=== PATIENT | female | born 1970 | race Caucasian/White ===

== ENCOUNTER 2017-02-11 16:27 | Inpatient (IN) | payer OTHER ==
[~2017-02-11] VITALS: Ht 160 cm; Wt 103.7 kg
[~2017-02-11 16:27] MED LIST: ACID REDUCER 1150 MG PO; CHANTIX1 MG PO; DIAZEPAM10 MG PO; DYMISTA NASAL S23 GM BOTH NARES; FIORICET,ESG1 TABLET PO; GABAPENTIN600 MG PO; HYDROXYCHLOROQ200 MG PO; Habitrol,Nicoderm CQ TD; K-DUR20 MEQ PO; LASIX40 MG PO; LEVAQUIN750 MG PO; LEVOTHYROXINE137 MCG PO; Levothroid,Synthroid PO; MICRO-K10 ME2 PO; Martinic PO; Micro-K,K-Tab,K-Dur, PO; PLAQUENIL200 MG PO; REQUIP2 MG PO; ROBAXIN500 MG PO; Requip PO; SYNTHROID112 MCG PO; SYNTHROID137 MCG PO; SYSTANE LIQUID15 ML RIGHT EYE; TOPAMAX100 MG PO; TOPAMAX50 MG PO; TRAMADOL HCL50 MG PO; TYLENOL EXTRA500 MG PO; Topamax PO; ULTRAM50 MG PO; VALIUM10 MG PO; VICODIN,LORT1 TABLET PO; VITAMIN B12 100MCG PO; Valium PO; ZOLOFT100 M1 PO; ZOLOFT100 MG PO; Zoloft PO
[2017-02-11 17:18] LABS: HEMATOCRIT 41.4 % (36.0-46.0); MCHC 33.1 G/DL (30.0-36.0); MCV 96.7 FL (83-99); MEAN PLAT.VOLUME 9.8 uM^3 (9.5-12.4); PLATELET COUNT 228 K/uL (156-360); RBC DIS.WIDTH-CV 13.1 % (11.8-14.6); RED BLOOD COUNT 4.28 M/uL (3.80-5.20)
[2017-02-11 17:27] LABS: CHLORIDE 109 mEq/L (99-109); POTASSIUM 3.6 mEq/L (3.7-5.4); SODIUM 138 mEq/L (136-147)
[2017-02-11 17:29] LABS: GLUCOSE 133 mg/dL (70-99)
[2017-02-11 17:30] LABS: ANION GAP 8 MEQ/L (2-14)
[2017-02-11 17:33] LABS: GFR ESTIMATE (CALCULATED) > 59 mL/min/
[2017-02-11 17:34] LABS: UREA NITROGEN (BUN) 8 mg/dL (9-23)
[2017-02-11 17:40] LABS: TROP-I INTERPRETATION NEGATIVE; TROPONIN-I < 0.01 ng/mL (0.0-0.30)
[2017-02-11 17:43] LABS: D-DIMER ELISA 0.55 mg/L FEU (< 0.57)
[2017-02-11] MEDS ORDERED: TOPAMAX50 MG PO ×2 (19:43)
[2017-02-11] MEDS ORDERED: CEPHALEXIN500 MG PO (19:47)
[2017-02-11] MEDS ORDERED: DULOXETINE HCL60 MG PO (19:47)
[2017-02-11] MEDS ORDERED: ESTRADIOL1 MG PO (19:47)
[2017-02-11] MEDS ORDERED: PRIMIDONE50 MG PO (19:48)
[2017-02-11] MEDS ORDERED: FLOVENT 11120 INHALA IH (19:49)
[2017-02-11] MEDS ORDERED: BIOTIN1000 MCG PO (19:49)
[2017-02-11] MEDS ORDERED: MELOXICAM7.5 MG PO (19:49)
[2017-02-11 21:49] LABS: BASE EXCESS -5.8 mEq/L (-3 to +3); BICARBONATE 18.5 mEq/L (22-26); CARBOXY HGB 1.5 % (0-5); METHEMOGLOBIN 1.3 % (0-1.5); PCO2 32 mm Hg (35-45); PO2 68 mm Hg (80-100); pH 7.37 (7.35-7.45)
[2017-02-11 21:50] LABS: COMMENTS - BLOOD GASES A+C+; DEVICE VENTURI MASK; FI02 50 %; O2 FLOW 12 L/MIN; SITE RR; TOTAL RESP RATE 20 resp/min
[2017-02-11 23:51] VITALS: BP 127/71
[2017-02-12 03:32] VITALS: BP 120/68
[2017-02-12 04:36] LABS: HEMATOCRIT 37.1 % (36.0-46.0); MCH 32.1 PG (29.0-34.0); MCHC 33.2 G/DL (30.0-36.0); MCV 96.9 FL (83-99); MEAN PLAT.VOLUME 9.9 uM^3 (9.5-12.4); PLATELET COUNT 204 K/uL (156-360); RBC DIS.WIDTH-CV 13.2 % (11.8-14.6); RBC DIS.WIDTH-SD 46.6 % (39-53); RED BLOOD COUNT 3.83 M/uL (3.80-5.20); WHITE BLOOD COUNT 14.4 K/uL (4.1-10.2)
[2017-02-12 04:55] LABS: CHLORIDE 114 mEq/L (99-109); POTASSIUM 3.5 mEq/L (3.7-5.4); SODIUM 140 mEq/L (136-147)
[2017-02-12 04:57] LABS: GLUCOSE 175 mg/dL (70-99)
[2017-02-12 04:58] LABS: ANION GAP 8 MEQ/L (2-14)
[2017-02-12 04:59] LABS: TOTAL BILIRUBIN 0.3 mg/dL (0.0-1.0)
[2017-02-12 05:00] LABS: ALKALINE PHOSPHATASE 80 IU/L (3-129)
[2017-02-12 05:01] LABS: GFR ESTIMATE (CALCULATED) > 59 mL/min/
[2017-02-12 05:02] LABS: DIRECT BILIRUBIN 0.1 mg/dL (0.0-0.3); UREA NITROGEN (BUN) 7 mg/dL (9-23)
[2017-02-12 08:27] VITALS: BP 140/79
[2017-02-12 09:16] LABS: CARBOXY HGB 2.2 % (0-5); HEMOGLOBIN 12.8 (11.9-15.5); METHEMOGLOBIN 1.5 % (0-1.5); PCO2 38 mm Hg (35-45); PO2 58 mm Hg (80-100); pH 7.33 (7.35-7.45)
[2017-02-12 09:17] LABS: BASE EXCESS -5.4 mEq/L (-3 to +3); COMMENTS - BLOOD GASES A+C+; DEVICE VM; FI02 50 %; O2 FLOW 12 L/MIN; SITE RR; TOTAL RESP RATE 28 resp/min
[2017-02-12 12:30] VITALS: BP 111/70
[2017-02-12 15:41] VITALS: BP 95/53
[2017-02-12 19:00] VITALS: BP 112/71
[2017-02-12 23:00] VITALS: BP 110/52
[2017-02-13 03:30] VITALS: BP 112/66
[2017-02-13 04:43] LABS: HEMATOCRIT 36.7 % (36.0-46.0); MCHC 32.7 G/DL (30.0-36.0); MCV 97.9 FL (83-99); MEAN PLAT.VOLUME 10.5 uM^3 (9.5-12.4); PLATELET COUNT 213 K/uL (156-360); RBC DIS.WIDTH-CV 13.2 % (11.8-14.6); RBC DIS.WIDTH-SD 47.8 % (39-53); RED BLOOD COUNT 3.75 M/uL (3.80-5.20); WHITE BLOOD COUNT 17.2 K/uL (4.1-10.2)
[2017-02-13 04:56] LABS: CHLORIDE 109 mEq/L (99-109); POTASSIUM 3.9 mEq/L (3.7-5.4); SODIUM 140 mEq/L (136-147)
[2017-02-13 04:57] LABS: GLUCOSE 142 mg/dL (70-99)
[2017-02-13 04:59] LABS: ANION GAP 7 MEQ/L (2-14)
[2017-02-13 05:01] LABS: GFR ESTIMATE (CALCULATED) > 59 mL/min/
[2017-02-13 05:02] LABS: UREA NITROGEN (BUN) 11 mg/dL (9-23)
[2017-02-13 08:50] VITALS: BP 110/63
[2017-02-13 09:48] LABS: INTERNAL CONTROL VALID? YES
[2017-02-13 12:53] VITALS: BP 98/51
[2017-02-13 15:20] VITALS: BP 97/61
[2017-02-13 19:35] VITALS: BP 108/73
[2017-02-13 23:03] LABS: METH RESISTANT S AUREUS PCR NEGATIVE (NEGATIVE)
[2017-02-13 23:05] LABS: PROBE CHECK PASS; SPECIMEN PROCESSING CONTROL PASS
[2017-02-13 23:43] VITALS: BP 125/83
[2017-02-14 04:45] VITALS: BP 126/82
[2017-02-14 06:02] LABS: HEMATOCRIT 36.9 % (36.0-46.0); MCH 31.6 PG (29.0-34.0); MCV 98.7 FL (83-99); MEAN PLAT.VOLUME 10.2 uM^3 (9.5-12.4); PLATELET COUNT 242 K/uL (156-360); RBC DIS.WIDTH-CV 13.1 % (11.8-14.6); RBC DIS.WIDTH-SD 47.7 % (39-53); RED BLOOD COUNT 3.74 M/uL (3.80-5.20); WHITE BLOOD COUNT 15.3 K/uL (4.1-10.2)
[2017-02-14 06:27] LABS: ANION GAP 5 MEQ/L (2-14); CHLORIDE 109 MEQ/L (99-109); GFR ESTIMATE (CALCULATED) > 59 mL/min/; GLUCOSE 110 mg/dL (70-99); POTASSIUM 4.1 MEQ/L (3.7-5.4); SAMPLE HEMOLYSIS CHECK 0; SAMPLE ICTERIC CHECK 0; SAMPLE LIPEMIA CHECK 0; SODIUM 138 MEQ/L (136-147); UREA NITROGEN (BUN) 13 mg/dL (9-23)
[2017-02-14 07:44] VITALS: BP 104/51
[2017-02-14 12:09] VITALS: BP 118/63
[2017-02-14 19:20] VITALS: BP 110/71
[2017-02-15 00:16] VITALS: BP 109/63
[2017-02-15 04:29] VITALS: BP 123/67
[2017-02-15 07:09] LABS: HEMATOCRIT 36.6 % (36.0-46.0); MCH 31.8 PG (29.0-34.0); MCHC 32.5 G/DL (30.0-36.0); MCV 97.9 FL (83-99); MEAN PLAT.VOLUME 10.8 uM^3 (9.5-12.4); PLATELET COUNT 249 K/uL (156-360); RBC DIS.WIDTH-CV 13.1 % (11.8-14.6); RBC DIS.WIDTH-SD 47.2 % (39-53); RED BLOOD COUNT 3.74 M/uL (3.80-5.20)
[2017-02-15 07:11] LABS: WHITE BLOOD COUNT 10.7 K/uL (4.1-10.2)
[2017-02-15 08:07] VITALS: BP 126/56
[2017-02-15 11:51] VITALS: BP 102/60
[2017-02-15 15:53] VITALS: BP 111/59
[2017-02-15 19:15] VITALS: BP 108/57
[2017-02-16 00:01] VITALS: BP 109/64
[2017-02-16 04:02] VITALS: BP 108/62
[2017-02-16 07:01] LABS: HEMATOCRIT 35.1 % (36.0-46.0); MCH 31.7 PG (29.0-34.0); MCHC 32.2 G/DL (30.0-36.0); MCV 98.3 FL (83-99); MEAN PLAT.VOLUME 10.7 uM^3 (9.5-12.4); PLATELET COUNT 251 K/uL (156-360); RBC DIS.WIDTH-CV 13.2 % (11.8-14.6); RBC DIS.WIDTH-SD 47.8 % (39-53); RED BLOOD COUNT 3.57 M/uL (3.80-5.20); WHITE BLOOD COUNT 9.5 K/uL (4.1-10.2)
[2017-02-16 09:00] VITALS: BP 118/56
[2017-02-16 16:00] VITALS: BP 112/60
[2017-02-16 16:28] LABS: C DIFF TOXIN NEGATIVE (NEGATIVE)
[2017-02-16 16:29] LABS: PROBE CHECK PASS; SPECIMEN PROCESSING CONTROL PASS
[2017-02-16 19:20] VITALS: BP 111/66
[2017-02-17 00:18] VITALS: BP 111/65
[2017-02-17 03:28] VITALS: BP 124/72
[2017-02-17 05:57] LABS: EOSINOPHIL (%) 0.4 % (0-5); HEMATOCRIT 36.9 % (36.0-46.0); IMMATURE GRANULOCYTE (%) 2.7 % (0.0-0.7); IMMATURE GRANULOCYTE COUNT 0.2 K/uL; INSTRUMENT ABS NEUTROPHIL CT 5.6 K/uL; LYMPHOCYTE COUNT 1.8 K/uL (1.0-2.8); MCH 31.9 PG (29.0-34.0); MCHC 32.2 G/DL (30.0-36.0); MCV 98.9 FL (83-99); MEAN PLAT.VOLUME 10.6 uM^3 (9.5-12.4); MONOCYTE COUNT 0.4 K/uL (0-0.8); NEUTROPHIL (%) 69.5 % (45-76); NEUTROPHIL COUNT 5.6 K/uL (1.8-6.4); PLATELET COUNT 278 K/uL (156-360); RBC DIS.WIDTH-CV 13.2 % (11.8-14.6); RBC DIS.WIDTH-SD 48.5 % (39-53); RED BLOOD COUNT 3.73 M/uL (3.80-5.20)
[2017-02-17 06:25] LABS: ALKALINE PHOSPHATASE 92 IU/L (3-129); ANION GAP 7 MEQ/L (2-14); CHLORIDE 107 MEQ/L (99-109); GFR ESTIMATE (CALCULATED) > 59 mL/min/; GLUCOSE 93 mg/dL (70-99); POTASSIUM 4.3 MEQ/L (3.7-5.4); SAMPLE HEMOLYSIS CHECK 0; SAMPLE ICTERIC CHECK 0; SAMPLE LIPEMIA CHECK 0; SODIUM 141 MEQ/L (136-147); TOTAL BILIRUBIN 0.3 MG/DL (0.0-1.0); UREA NITROGEN (BUN) 12 mg/dL (9-23)
[2017-02-17 09:00] VITALS: BP 119/58
[2017-02-17 16:00] VITALS: BP 126/64
[2017-02-17 20:00] VITALS: BP 116/61
[2017-02-18] VITALS: BP 123/70
[2017-02-18 03:00] VITALS: BP 115/68
[2017-02-18 06:11] LABS: ALKALINE PHOSPHATASE 94 IU/L (3-129); ANION GAP 6 MEQ/L (2-14); CHLORIDE 108 MEQ/L (99-109); GFR ESTIMATE (CALCULATED) > 59 mL/min/; GLUCOSE 76 mg/dL (70-99); POTASSIUM 4.1 MEQ/L (3.7-5.4); SAMPLE HEMOLYSIS CHECK 0; SAMPLE ICTERIC CHECK 0; SAMPLE LIPEMIA CHECK 0; SODIUM 139 MEQ/L (136-147); TOTAL BILIRUBIN 0.3 MG/DL (0.0-1.0); UREA NITROGEN (BUN) 10 mg/dL (9-23)
[2017-02-18 06:17] LABS: HEMATOCRIT 36.7 % (36.0-46.0); MCH 31.9 PG (29.0-34.0); MCHC 32.7 G/DL (30.0-36.0); MCV 97.6 FL (83-99); MEAN PLAT.VOLUME 10.6 uM^3 (9.5-12.4); PLATELET COUNT 272 K/uL (156-360); RBC DIS.WIDTH-CV 13.2 % (11.8-14.6); RBC DIS.WIDTH-SD 47.6 % (39-53); RED BLOOD COUNT 3.76 M/uL (3.80-5.20); WHITE BLOOD COUNT 10.8 K/uL (4.1-10.2)
[2017-02-18 06:45] LABS: ABS NEUTROPHIL COUNT 8.1; ANISOCYTOSIS 1+; BAND NEUTROPHILS 3.5 % (0-8.0); EOSINOPHIL ABS CT 0.1; EOSINOPHILS 0.9 % (0-5.0); INSTRUMENT ABS NEUTROPHIL CT 6.1 K/uL; LYMPHOCYTES 18.6 % (15.0-45.0); MACROCYTES 1+; METAMYELOCYTES 0.9 %; NUCLEATED RBC'S 0.9; PLAT.SUFFICIENCY ADEQUATE; SEG.NEUTROPHILS 71.7 % (46.0-76.0)
[2017-02-18 08:00] VITALS: BP 131/68
[2017-02-18 12:09] VITALS: BP 119/72
[2017-02-18 13:58] LABS: GLOMERULAR BASEMENT MEMB ABY+ <1.0 AI (<1.0)
[2017-02-18 15:50] VITALS: BP 133/69
[2017-02-18 20:01] VITALS: BP 121/73
[2017-02-19 00:08] VITALS: BP 117/63
[2017-02-19 04:00] VITALS: BP 109/65
[2017-02-19 08:00] VITALS: BP 116/66
[2017-02-19 12:00] VITALS: BP 111/60
[2017-02-19 15:25] VITALS: BP 112/65
[2017-02-19 20:51] LABS: Neutrophil Cytoplasmic Aby Negative (Negative)
[2017-02-20 00:18] VITALS: BP 128/75
[2017-02-20] MEDS ORDERED: MYCOSTATIN 100,60 ML PO (08:38)
[2017-02-20] MEDS ORDERED: SPIRIVA RESPIMAT4 GM IH (08:38)
[2017-02-20] MEDS ORDERED: MYCOPHENOLATE250 MG PO (08:38)
[2017-02-20] MEDS ORDERED: PREDNISONE10 MG PO (08:38)
[2017-02-20] MEDS ORDERED: CALCIUM 500-VI1 EACH PO (08:56)
== END 2017-02-20 10:26 | disposition home or self-care (01) | DRG 871 ==
LOC: EME 16:27 → 4EAST 21:39 → EDOF 21:39 → 4EAST 23:23 → 2EAST 02-18 15:48
PROVIDERS: Emergency Medicine; Hospitalist; Internal Medicine; Internal Medicine Infectious Disease; Internal Medicine Pulmonary Disease
DX: A41.9 Sepsis, unspecified organism (principal); J96.01 Acute respiratory failure with hypoxia; J84.9 Interstitial pulmonary disease, unspecified; J15.9 Unspecified bacterial pneumonia; I27.2 Other secondary pulmonary hypertension; B37.0 Candidal stomatitis; J44.0 Chronic obstructive pulmonary disease with (acute) lower respiratory infection; K51.90 Ulcerative colitis, unspecified, without complications; J44.1 Chronic obstructive pulmonary disease with (acute) exacerbation; M06.9 Rheumatoid arthritis, unspecified; Z68.41 Body mass index [BMI] 40.0-44.9, adult; E03.9 Hypothyroidism, unspecified; Z72.0 Tobacco use; Z87.442 Personal history of urinary calculi; G89.29 Other chronic pain; R10.9 Unspecified abdominal pain; J45.909 Unspecified asthma, uncomplicated; R65.20 Severe sepsis without septic shock; E87.6 Hypokalemia; F32.9 Major depressive disorder, single episode, unspecified
CPT/HCPCS: 36600; 71010; 71020; 71275; 76937; 80048; 80053; 80076; 82607; 82746; 82803; 83520 90; 83605; 83880; 84145 90; 84484; 85025; 85027; 85379; 86021 90; 86038; 86430; 87040; 87070; 87106; 87205; 87449; 87493; 87641; 93306; 94010; 94640; 94640 76; 94644; 94760; 94799; 99202; 99281; 99284; C1894; J0696; J1644; J1940; J1956; J2405; J2543; J2930; J7030; J7050; J7512; J7517

== ENCOUNTER 2017-09-11 09:32 | Observation (INO) | payer OTHER ==
[~2017-09-11] VITALS: Ht 157.5 cm; Wt 105.1 kg
[~2017-09-11 09:32] MED LIST changes: +CALCIUM 500-VI1 EACH PO; +CEPHALEXIN500 MG PO; +DULOXETINE HCL60 MG PO; +ESTRADIOL1 MG PO; +FLOVENT 11120 INHALA IH; +MEGA BIOTIN10000 MCG PO; +MELOXICAM7.5 MG PO; +MYCOPHENOLATE250 MG PO; +MYCOSTATIN 100,60 ML PO; +PREDNISONE10 MG PO; +PRIMIDONE50 MG PO; +SPIRIVA RESPIMAT4 GM IH
[2017-09-11 10:08] LABS: HEMATOCRIT 40.5 % (36.0-46.0); HEMOGLOBIN 13.7 G/DL (11.9-15.5); MCH 31.6 PG (29.0-34.0); MCHC 33.8 G/DL (30.0-36.0); MCV 93.5 FL (83-99); PLATELET COUNT 270 K/uL (156-360); RBC DIS.WIDTH-CV 12.3 % (11.8-14.6); RBC DIS.WIDTH-SD 42.5 % (39-53); RED BLOOD COUNT 4.33 M/uL (3.80-5.20); WHITE BLOOD COUNT 9.4 K/uL (4.1-10.2)
[2017-09-11 10:19] LABS: ALBUMIN 3.7 g/dL (3.2-4.8); CHLORIDE 104 mEq/L (99-109); POTASSIUM 4.2 mEq/L (3.7-5.4); SODIUM 138 mEq/L (136-147)
[2017-09-11 10:21] LABS: GLUCOSE 88 mg/dL (70-99); TOTAL PROTEIN 8.4 g/dL (6.4-8.3)
[2017-09-11 10:23] LABS: TOTAL BILIRUBIN 0.4 mg/dL (0.0-1.0)
[2017-09-11 10:25] LABS: ALKALINE PHOSPHATASE 120 IU/L (3-129); GFR ESTIMATE (CALCULATED) > 59 mL/min/
[2017-09-11 10:26] LABS: UREA NITROGEN (BUN) 12 mg/dL (9-23)
[2017-09-11 10:27] LABS: AST (GOT) 21 IU/L (2-34)
[2017-09-11 10:28] LABS: ALT (GPT) 13 IU/L (3-49)
[2017-09-11 10:34] LABS: TROP-I INTERPRETATION NEGATIVE; TROPONIN-I 0.01 ng/mL (0.0-0.30)
[2017-09-11 10:42] LABS: APPEARANCE SL.HAZY ((CLEAR)); BILIRUBIN NEGATIVE; BLOOD LARGE; COLOR STRAW ((YELLOW)); GLUCOSE (STRIP) NEGATIVE; KETONES NEGATIVE; LEUKOCYTES LARGE; NITRITE NEGATIVE; PROTEIN (STRIP) NEGATIVE; SPECIFIC GRAVITY 1.003 (1.000-1.030); UROBILINOGEN 0.2 MG/DL (0.2-1.0)
[2017-09-11 10:45] LABS: BACTERIA RARE /HPF; EPITHELIAL CELLS 1+ /HPF; MUCUS TRACE /LPF; UCUL ADDED? YES; WHITE BLOOD CELLS TNTC /HPF (0-5)
[2017-09-11] MEDS ORDERED: RESTASIS MULTI5.5 ML RIGHT EYE (12:58)
[2017-09-11] MEDS ORDERED: LEVOTHYROXINE137 MCG PO (12:59)
[2017-09-11] MEDS ORDERED: CLARITIN10 M3 PO (12:59)
[2017-09-11] MEDS ORDERED: ADVAIR 500/501 DISK IH (12:59)
[2017-09-11] MEDS ORDERED: ASPIR 8181 M1 PO (13:00)
[2017-09-11] MEDS ORDERED: PROAIR HFA8.5 GM IH (13:01)
[2017-09-11] MEDS ORDERED: PROVENTIL,2.5 MG/3 M IH (13:01)
[2017-09-11] MEDS ORDERED: CYMBALTA60 MG PO (13:02)
[2017-09-11] MEDS ORDERED: CYMBALTA30 MG PO (13:02)
[2017-09-11] MEDS ORDERED: AMBIEN10 MG PO (13:04)
[2017-09-11 13:49] LABS: Estimated Average Glucose 108 mg/dL (70-123); HEMOGLOBIN A1c (GLYCOHEMOGLOB) 5.4 % HGB (Below 5.7)
[2017-09-11 13:59] LABS: HDL CHOLESTEROL 75 MG/DL (Desirable>=50); LDL CHOLESTEROL 134 mg/dL (Desirable<100); NON-HDL CHOLESTEROL 148 mg/dL (Desirable<160); TOTAL CHOLESTEROL 223 mg/dL (Desirable<200); TRIGLYCERIDES 69 MG/DL (Normal: <150)
[2017-09-11 15:31] VITALS: BP 160/78
[2017-09-11 19:29] LABS: TROP-I INTERPRETATION NEGATIVE; TROPONIN-I < 0.01 ng/mL (0.0-0.30)
[2017-09-11 20:25] VITALS: BP 104/56
[2017-09-11 22:44] LABS: TROP-I INTERPRETATION NEGATIVE; TROPONIN-I < 0.01 ng/mL (0.0-0.30)
[2017-09-12 00:05] VITALS: BP 109/59
[2017-09-12 04:19] VITALS: BP 107/67
[2017-09-12 07:04] LABS: CHLORIDE 107 MEQ/L (99-109); CREATININE 0.9 MG/DL (0.6-1.3); GFR ESTIMATE (CALCULATED) > 59 mL/min/; GLUCOSE 94 mg/dL (70-99); SODIUM 141 MEQ/L (136-147); UREA NITROGEN (BUN) 14 mg/dL (9-23)
[2017-09-12 07:11] LABS: MCH 31.8 PG (29.0-34.0); MCHC 33.3 G/DL (30.0-36.0); MCV 95.4 FL (83-99); PLATELET COUNT 262 K/uL (156-360); RBC DIS.WIDTH-CV 12.5 % (11.8-14.6); RBC DIS.WIDTH-SD 43.5 % (39-53); RED BLOOD COUNT 4.09 M/uL (3.80-5.20); WHITE BLOOD COUNT 4.6 K/uL (4.1-10.2)
[2017-09-12 07:20] VITALS: BP 118/75
[2017-09-12 11:20] VITALS: BP 117/74
[2017-09-12] MEDS ORDERED: PRAVASTATIN SOD40 MG PO (14:03)
[2017-09-12] MEDS ORDERED: CIPRO500 MG PO (15:31)
[2017-09-14 11:38] LABS: LYME DISEASE SEROLOGY SCREEN NEGATIVE (NEGATIVE)
== END 2017-09-12 15:38 | disposition home or self-care (01) ==
LOC: EME 09:32 → 5SOUTH 13:00 → EDOF 13:00 → ENRESERV 13:01 → EDOF 13:16 → ENRESERV 13:41 → 5SOUTH 15:15
PROVIDERS: Emergency Medicine; Nurse Practitioner Adult Health; Psychiatry & Neurology Neurology
DX: H53.8 Other visual disturbances (principal); H57.8 Other specified disorders of eye and adnexa; R42 Dizziness and giddiness; R26.89 Other abnormalities of gait and mobility; R29.810 Facial weakness; I65.23 Occlusion and stenosis of bilateral carotid arteries; R07.9 Chest pain, unspecified; N39.0 Urinary tract infection, site not specified; M06.9 Rheumatoid arthritis, unspecified; J44.9 Chronic obstructive pulmonary disease, unspecified; E03.9 Hypothyroidism, unspecified; F32.9 Major depressive disorder, single episode, unspecified; K51.90 Ulcerative colitis, unspecified, without complications; G89.29 Other chronic pain; G93.89 Other specified disorders of brain; Z98.890 Other specified postprocedural states; Z79.82 Long term (current) use of aspirin; Z90.49 Acquired absence of other specified parts of digestive tract; Z90.710 Acquired absence of both cervix and uterus; Z82.3 Family history of stroke; Z82.49 Family history of ischemic heart disease and other diseases of the circulatory system; Z87.891 Personal history of nicotine dependence
CPT/HCPCS: 70450; 70551; 71010; 72141; 80048; 80053; 80061; 81003; 83036; 84484; 85027; 86038; 86618; 87086 GA; 93005; 93880; 99281; 99285; G0378; J0696; J1650